=== PATIENT | female | born 1965 | race Two or more races ===

== ENCOUNTER 2024-10-17 19:05 | Emergency (ER) | payer MEDICAID, SELFPAY ==
[2024-10-17 19:07] VITALS: BMI 25.8
[2024-10-17 20:03] VITALS: BP 197/113; BP 207/104; PULSE 109; RESP 20; TEMP 36.6; O2SAT 98
--- NOTE | 2024-10-17 20:15 | XR_ITS ---
Examination: CT pelvis left hip, without contrast. 2-D sagittal reconstructions. 2-D coronal reconstructions. 3-D reconstructions. Date and time of exam: October 17, 2024 2120 hours INDICATIONS: Patient fell off a horse 3 days ago with injury to the left hip, left hip pain CTDI: vol (mGy):8.09 DLP: (mGycm):222 Technique: Multiple 1.25 mm axial sections of the pelvis left hip have been obtained. 2-D sagittal and coronal reconstructions have been obtained. 3-D reconstructions have been obtained. Low dose protocols were performed. One or more of the following dose reduction techniques were used; automated exposure control, adjustment of the mA and/or KV according to patient size, use of iterative reconstruction technique. Findings: Sacral segments, iliac bones, acetabular regions intact Anterior rami are intact No acute hip fractures or dislocations No pelvic hematoma Urinary bladder intact IMPRESSION: No acute hip or pelvic fracture
--- NOTE | 2024-10-17 20:15 | XR_ITS ---
Examination:Left hip AP, lateral, AP pelvis 3 views Technique: Hip AP lateral, AP pelvis, 3 views Exam date and time:October 17, 2024 1929 hours INDICATIONS: Patient fell off a horse 4 days ago with injury to left hip, left hip pain FINDINGS: Moderate osteopenia. No acute hip or pelvic fracture IMPRESSION: No acute hip or pelvic fracture.
[2024-10-17] MEDS: HYDROcodone/APAP 5/325 TABLET 1 TAB PO (20:47)
[2024-10-17 22:22] VITALS: BP 208/108
--- NOTE | 2024-10-18 04:15 | PD.EDLOWEX ---
Lower Extremity Injury RME/HPI General Chief Complaint: Extremity Injury, Lower Stated Complaint: LEFT HIP PAIN FELL OFF HORSE 3-4 DAYS AGO Time Seen by Provider: 10/17/24 20:15 Arrival date/time: 10/17/24 19:05 59F with history of asthma, HTN and DM presents to ED with L hip/buttock pain after she fell off a horse and landed on her behind several days ago. Patient denies hitting her head, neck, N/V, AMS, seizures N/V, vision changes, weakness, dizziness and bowel/bladder problems. Limitations: no limitations Related Data Home Medications ?Medication ?Instructions ?Recorded ?Confirmed doxepin 25 mg capsule 25 mg PO QHS 04/25/18 hydrochlorothiazide 25 mg tablet 25 mg PO QDAY 04/25/18 metoprolol tartrate 25 mg tablet 25 mg PO DAILY 04/25/18 trazodone 50 mg tablet 50 mg PO QDAY 04/25/18 Previous Rx's ?Medication ?Instructions ?Recorded methocarbamol 500 mg tablet 500 mg PO QID PRN pain #30 tabs 04/25/18 (Robaxin) metformin 500 mg tablet 500 mg PO BIDWMEAL #30 tabs 11/11/23 Allergies Allergy/AdvReac Type Severity Reaction Status Date / Time citalopram hydrobromide Allergy Mild ANXIETY Verified 10/17/24 19:07 erythromycin base Allergy Mild ANXIETY Verified 10/17/24 19:07 paroxetine HCl Allergy Mild GI UPSET Verified 10/17/24 19:07 Penicillins Allergy Verified 10/17/24 19:07 Review of Systems Review of Systems Systems Reviewed: All systems reviewed, normal except as documented Constitutional Constitutional: Reports system reviewed and no additional complaints, except as documented, Denies fever(s) and Denies headache(s) ENT Ears, Nose, Mouth, and Throat: Denies disequilibrium and Denies headache(s) Cardiovascular Cardiovascular: Reports system reviewed and no additional complaints, except as documented, Denies chest pain and Denies dyspnea Respiratory Respiratory: Reports system reviewed and no additional complaints, except as documented, Denies cough and Denies dyspnea Gastrointestinal Gastrointestinal: Reports system reviewed and no additional complaints, except as documented, Denies abdominal pain, Denies nausea and Denies vomiting Musculoskeletal Musculoskeletal: Reports as per HPI and Reports arthralgias Neurologic Neurologic: Reports system reviewed and no additional complaints, except as documented, Denies confusion, Denies disequilibrium and Denies headache(s) Psychiatric Psychiatric: Denies confusion Past Medical History Past Medical History CARDIAC: Positive Cardiac Disorders and Hypertension; Negative Congestive Heart Failure RESPIRATORY: Positive Asthma; Negative Chronic Obstructive Pulmonary Disease (COPD) GASTROINTESTINAL: Positive Hepatitis GENITOURINARY: Negative Renal Disease ENDOCRINE: Positive Diabetes Mellitus Type 2; Negative Diabetes Mellitus Type 1 HEMATOLOGIC: Negative Sickle Cell Disease PSYCHO/SOCIAL: Positive Recreational Drug Use and Anxiety Social History SMOKING STATUS: Current every day smoker SUBSTANCE USE: does not use ED Exam General Limitations: Present no limitations General appearance: Present alert and in no apparent distress Head Head exam: Present atraumatic Eye Eye exam: Present normal appearance, PERRL and EOMI ENT ENT exam: Present normal exam, normal oropharynx and mucous membranes moist Neck Neck exam: Present normal inspection, full ROM and trachea midline Chest Chest inspection: Present normal inspection and symmetric chest wall rise Respiratory Respiratory exam: Present normal lung sounds bilaterally Cardiovascular Cardiovascular exam: Present regular rate, normal rhythm and normal heart sounds Abdominal Exam Abdominal exam: Present soft and normal bowel sounds Extremities Exam Extremities exam: Present full ROM Expanded Lower Extremity Exam Hip/Pelvis exam: Present full ROM (L) and tenderness Back Exam Back exam: Present normal inspection and full ROM Neurological Exam Neurological exam: Present alert, oriented X3 and CN II-XII intact Psychiatric Psychiatric exam: Present normal affect and normal mood Skin Skin exam: Present warm, dry, intact and normal color Course Quality Measures none Orders Category Date Time Status CT hip LT wo con Stat Exams 10/17/24 20:15 Completed XR hip LT w pelvis 2-3V Stat Exams 10/17/24 20:15 Completed HYDROcodone*/APAP 5/325 [[place] 5/325] Med 10/17/24 20:15 Discontinued 1 tab PO X1 ONE Vital Signs Vital signs: Vital Signs Temperature 97.8 F 10/17/24 20:03 Pulse Rate 109 H 10/17/24 20:03 Respiratory Rate 20 10/17/24 20:03 Blood Pressure 207/104 H 10/17/24 20:03 Pulse Oximetry (%) 98 10/17/24 20:03 Oxygen Delivery Method Room Air 10/17/24 20:03 O2 at 98% on RA and WNLs Extremity Injury, Lower MDM Narrative MDM Narrative:: 59F with history of asthma, HTN and DM presents to ED with L hip/buttock pain after she fell off a horse and landed on her behind several days ago. Patient denies hitting her head, neck, N/V, AMS, seizures N/V, vision changes, weakness, dizziness and bowel/bladder problems. Physical exam reveals no gross head trauma. No ROM intact. Clear lungs. Extremities normal. L hip tenderness, but gait mostly intact. No back tenderness. ROM intact. Patient is afebrile, calm, and alert. XR and CT reveal no acute abnormalities. Meds and teacher counselor given. Patient data External records reviewed:: [facility] previous records Clinical information provided by:: patient Social determinants that could affect healthcare access:: none Patient has the following chronic illnesses:: HTN and DM How is presenting disease/condition affected by chronic disease/condition?: uneffected by Evaluation data The following diagnostics were reviewed and interpreted by me:: radiology exam(s) Lab and/or radiology exams considered but not ordered:: ordered Interpretation Summary: above Medications / Prescriptions Medications or Prescriptions considered but not ordered:: ordered Medication administrations:: Medication Administration History Discontinued Medications Hydrocodone Bitart/Acetaminophen (Hydrocodone/Apap 5/325 Tablet) 1 tab PO X1 ONE Stop: 10/17/24 20:16 Last Admin: 10/17/24 20:47 Dose: 1 tab Documented By: above Consultations Consultation(s) initiated? (list below): No Diagnosis Extremity Injury, Lower Differential Diagnosis: ankle sprain and strain, acute internal derangement of knee, fracture of femur, fracture of hip, puncture wound of foot, fracture of toe, ankle fracture and other (hip contusion) Most likely diagnosis given after review of the tests above:: hip contusion Admission Indicated Admission indicated?: not indicated Admission Request Was there a request for admission?: No Disposition Plan Disposition Plan: Discharge Discharge Attestation Discharge Attestation: The patient and all family members were given an opportunity to ask questions and understood the discharge instructions. Discharge instructions specifically effects, indications for sooner follow up or return to the emergency department, and the expected course of current diagnosis. Patient condition: Stable Discharge Plan Plan Patient Disposition: HOME (Self Care) Disposition Comment: Stable Prescriptions/Referrals Prescriptions/Med Rec: No Action hydrochlorothiazide 25 mg tablet 25 mg PO QDAY doxepin 25 mg capsule 25 mg PO QHS metoprolol tartrate 25 mg tablet 25 mg PO DAILY trazodone 50 mg tablet 50 mg PO QDAY methocarbamol [Robaxin] 500 mg tablet 500 mg PO QID PRN (Reason: pain) Qty: 30 0RF metformin 500 mg tablet 500 mg PO BIDWMEAL Qty: 30 0RF Referrals: Nabil Sandoval PA-C [Primary Care Provider] - In 1 week Problem List Clinical Impression: Contusion of hip Patient/Caregiver Discharge Instructions Education Materials: ED Hip Contusion Additional Instructions: Please follow-up with PCP within 24-48 hours and return immediately if symptoms worsen. If problem persists, recommend outpatient PT and/or MRI follow-up. In the meantime, rest, use ice/heat, and/or compression. Print Language: Irish Stand Alone Forms: Patient Portal Info Letter OH/TONY Supervising Physician LAZ Supervising Physician: Dr. Castillo
== END 2024-10-17 22:23 | disposition home or self-care (01) ==
PROVIDERS: Emergency Provider Emergency Medicine; PCP Physician Assistant
DX: S70.02XA Contusion of left hip, initial encounter (principal); V80.010A Animal-rider injured by fall from or being thrown from horse in noncollision accident, initial encounter; Y93.52 Activity, horseback riding; I10 Essential (primary) hypertension; J45.909 Unspecified asthma, uncomplicated; E11.9 Type 2 diabetes mellitus without complications
CPT/HCPCS: 73502; 73700; 99281; A9270

== ENCOUNTER 2025-04-28 15:03 | Emergency (ER) | payer MEDICAID, SELFPAY ==
[2025-04-28] MEDS: LIDOCAINE HCL 1% 20 ML VIAL INFL (15:34)
--- NOTE | 2025-04-28 15:54 | PD.EDWOUND ---
ED Wound/Laceration-RME/HPI General Chief Complaint: Wound/Laceration Stated Complaint: LAC BETWEEN R) 2ND/3RD FINGERS Time Seen by Provider: 04/28/25 15:54 Source: patient Arrival date/time: 04/28/25 15:03 60-year-old female with no known medical history presents to the emergency room with a chief complaint of a laceration between her 2nd and 3rd fingers in her right hand x 1 hour Mode of arrival: ambulatory Limitations: no limitations Related Data Home Medications ?Medication ?Instructions ?Recorded ?Confirmed doxepin 25 mg capsule 25 mg PO QHS 04/25/18 hydrochlorothiazide 25 mg tablet 25 mg PO QDAY 04/25/18 metoprolol tartrate 25 mg tablet 25 mg PO DAILY 04/25/18 trazodone 50 mg tablet 50 mg PO QDAY 04/25/18 Previous Rx's ?Medication ?Instructions ?Recorded methocarbamol 500 mg tablet 500 mg PO QID PRN pain #30 tabs 04/25/18 (Robaxin) metformin 500 mg tablet 500 mg PO BIDWMEAL #30 tabs 11/11/23 Allergies Allergy/AdvReac Type Severity Reaction Status Date / Time citalopram hydrobromide Allergy Mild ANXIETY Verified 04/28/25 15:06 erythromycin base Allergy Mild ANXIETY Verified 04/28/25 15:06 paroxetine HCl Allergy Mild GI UPSET Verified 04/28/25 15:06 Penicillins Allergy Verified 04/28/25 15:06 Review of Systems Review of Systems Systems Reviewed: All systems reviewed, normal except as documented Constitutional Constitutional: Reports system reviewed and no additional complaints, except as documented, Denies fatigue, Denies fever(s), Denies headache(s) and Denies weakness Eyes Eyes: Reports system reviewed and no additional complaints, except as documented, Denies blurry vision and Denies change in vision ENT Ears, Nose, Mouth, and Throat: Reports system reviewed and no additional complaints, except as documented, Denies otalgia, Denies headache(s), Denies nasal congestion, Denies throat swelling and Denies vertigo Cardiovascular Cardiovascular: Reports system reviewed and no additional complaints, except as documented, Denies chest pain, Denies dyspnea and Denies dyspnea on exertion Respiratory Respiratory: Reports system reviewed and no additional complaints, except as documented, Denies chest congestion, Denies cough, Denies dyspnea, Denies dyspnea on exertion and Denies wheezing Gastrointestinal Gastrointestinal: Reports system reviewed and no additional complaints, except as documented, Denies abdominal pain, Denies cramping, Denies nausea and Denies vomiting Genitourinary Genitourinary: Reports system reviewed and no additional complaints, except as documented Musculoskeletal Musculoskeletal: Reports system reviewed and no additional complaints, except as documented and Denies back pain Integumentary/Breasts Skin/Breast: Reports system reviewed and no additional complaints, except as documented and Reports wounds Neurologic Neurologic: Reports system reviewed and no additional complaints, except as documented, Denies confusion, Denies headache(s), Denies lack of coordination, Denies vertigo and Denies weakness Psychiatric Psychiatric: Reports system reviewed and no additional complaints, except as documented, Denies anxiety, Denies confusion, Denies depression, Denies paranoia, Denies suicidal ideation and Denies tactile hallucinations Endocrine Endocrine: Reports system reviewed and no additional complaints, except as documented and Denies fatigue Hematologic/Lymphatic Hematologic/Lymphatic: Reports system reviewed and no additional complaints, except as documented and Denies lymphadenopathy Allergic/Immunologic Allergic/Immunologic: Reports system reviewed and no additional complaints, except as documented, Denies throat swelling, Denies urticaria and Denies wheezing Past Medical History Past Medical History CARDIAC: Positive Cardiac Disorders and Hypertension; Negative Congestive Heart Failure RESPIRATORY: Positive Asthma; Negative Chronic Obstructive Pulmonary Disease (COPD) GASTROINTESTINAL: Positive Hepatitis GENITOURINARY: Negative Renal Disease ENDOCRINE: Positive Diabetes Mellitus Type 2; Negative Diabetes Mellitus Type 1 HEMATOLOGIC: Negative Sickle Cell Disease PSYCHO/SOCIAL: Positive Recreational Drug Use and Anxiety Social History SMOKING STATUS: Current every day smoker SUBSTANCE USE: does not use ED Exam General Limitations: Present no limitations General appearance: Present alert and in no apparent distress Head Head exam: Present atraumatic Eye Eye exam: Present normal appearance, PERRL and EOMI ENT ENT exam: Present normal exam, normal oropharynx and mucous membranes moist Neck Neck exam: Present normal inspection, full ROM and trachea midline Chest Chest inspection: Present normal inspection and symmetric chest wall rise Respiratory Respiratory exam: Present normal lung sounds bilaterally Cardiovascular Cardiovascular exam: Present regular rate, normal rhythm and normal heart sounds Abdominal Exam Abdominal exam: Present soft and normal bowel sounds Extremities Exam Extremities exam: Present normal inspection and full ROM Expanded Upper Extremity Exam Shoulder exam: Present normal inspection Arm exam: Present normal inspection Elbow exam: Present normal inspection Forearm/Wrist exam: Present normal inspection Hand exam: Present laceration Hand L/R back image:  1. 1 cm laceration between the 2nd and 3rd digit on the right hand Back Exam Back exam: Present normal inspection and full ROM Neurological Exam Neurological exam: Present alert, oriented X3 and CN II-XII intact Psychiatric Psychiatric exam: Present normal affect and normal mood Skin Skin exam: Present warm, dry, intact and normal color Course Quality Measures none Orders Category Date Time Status Set Up Suture Tray STAT Care 04/28/25 15:29 Completed Wound Care NOW Care 04/28/25 15:29 Completed Lidocaine 1% 20 ml [Xylocaine 1% 20 ML] Med 04/28/25 15:29 Discontinued 20 ml INFL X1 ONE TET,DIP/PERT AC (Adult)-Tdap [Boostrix Adult (Tdap) Med 04/28/25 15:29 Discontinued Vacc] 0.5 ml IMI .ONCE ONE PROCEDURES: Laceration Laceration 1: Site: hand Side (If applicable): right Size (cm): 1.5 Description: linear Depth: simple, single layer Local Anesthetic: lidocaine 1% Amount of anesthesia used (mL): 4 Pre-repair: irrigated extensively Skin layer closed with: nylon Suture size (cm): 4-0 Number of sutures: 3 Technique: simple, interrupted Wound / Laceration MDM Narrative MDM Narrative:: 60-year-old female with no known medical history presents to the emergency room with a chief complaint of a laceration between her 2nd and 3rd fingers in her right hand x 1 hour The laceration occured 1 hour ago The mechanism of injury was accidentally cutting herself with scissors while trying to open a plastic bottle Sensation is intact. There is full ROM. There is no exposed tendons. No foreign bodies. Lidocaine 1% was used for anesthesia. The wound was irrigated extensively with normal saline. 3 sutures were placed. A dressing was placed. There were no complications. Patient was educated to keep the area clean and dry for 24 hours, then clean daily with soap and water. Patient was educated to return for any signs of infection including swelling pain redness pus or fever and to make an appointment with primary care provider in 48 hours. Patient was educated to follow up with primary or return to emergency room for suture removal in the next 7-10 days. Patient data External records reviewed:: [facility] previous records Clinical information provided by:: patient Social determinants that could affect healthcare access:: none Patient has the following chronic illnesses:: No chronic illness How is presenting disease/condition affected by chronic disease/condition?: no chronic disease Evaluation data The following diagnostics were reviewed and interpreted by me:: lab results and radiology exam(s) Lab and/or radiology exams considered but not ordered:: Labs and radiology exams considered and ordered Interpretation Summary: N/A Medications / Prescriptions Medications or Prescriptions considered but not ordered:: Medication given Medication administrations:: Medication Administration History Discontinued Medications Diphtheria/Tetanus/Acell Pertussis (Diphth,Pertuss(Acell),Tet Vac 0.5 Ml Syr- Adult) 0.5 ml IMi .ONCE ONE Stop: 04/28/25 15:30 Last Admin: 04/28/25 15:37 Dose: Not Given Documented By: ZENON Non-Admin Reason: Patient Refused Comments: PT ALREADY VACCINATED Lidocaine HCl (Lidocaine Hcl 1% 20 Ml Vial) 20 ml INFL X1 ONE Stop: 04/28/25 15:30 Last Admin: 04/28/25 15:34 Dose: 20 ml Documented By: ZENON Comments: GIVEN TO PROVIDER Medication given Consultations Consultation(s) initiated? (list below): No Diagnosis Wound Differential Diagnosis: laceration, abscess and abrasion Most likely diagnosis given after review of the tests above:: Laceration Admission Indicated Admission indicated?: not indicated Admission Request Was there a request for admission?: No Disposition Plan Disposition Plan: Discharge Discharge Attestation Discharge Attestation: The patient and all family members were given an opportunity to ask questions and understood the discharge instructions. Discharge instructions specifically effects, indications for sooner follow up or return to the emergency department, and the expected course of current diagnosis. Patient condition: Stable Discharge Plan Plan Patient Disposition: HOME (Self Care) Discharge Disposition comment: Stable Prescriptions/Referrals Prescriptions/Med Rec: No Action hydrochlorothiazide 25 mg tablet 25 mg PO QDAY doxepin 25 mg capsule 25 mg PO QHS metoprolol tartrate 25 mg tablet 25 mg PO DAILY trazodone 50 mg tablet 50 mg PO QDAY methocarbamol [Robaxin] 500 mg tablet 500 mg PO QID PRN (Reason: pain) Qty: 30 0RF metformin 500 mg tablet 500 mg PO BIDWMEAL Qty: 30 0RF Problem List Clinical Impression: Laceration Patient/Caregiver Discharge Instructions Additional Instructions: Please follow-up with your primary care provider in the next 24 to 48 hours Please keep the area clean and dry for the next 24 hours. Afterwards you can clean it with soap and water. Pat dry. Please do not remove the sutures on your own. You can return to the emergency room in 7 to 10 days or follow-up with your primary care provider for suture removal. When possible elevate the extremity/area as this can reduce swelling. For any evidence of worsening signs or symptoms return to the emergency room immediately Print Language: Malian Stand Alone Forms: Delilah Award Info., Work/School Release, Patient Portal Info Letter PA/SURVEY QUESTIONNAIRE DESIGNER Supervising Physician PA/SURVEY QUESTIONNAIRE DESIGNER Supervising Physician: Dr. Quezada
== END 2025-04-28 16:24 | disposition home or self-care (01) ==
LOC: SERX 15:58
PROVIDERS: Emergency Provider Family Medicine; PCP Physician Assistant
DX: S61.210A Laceration without foreign body of right index finger without damage to nail, initial encounter (principal); S61.212A Laceration without foreign body of right middle finger without damage to nail, initial encounter; W27.2XXA Contact with scissors, initial encounter; Y93.89 Activity, other specified
CPT/HCPCS: 12002; 99284; J3490